=== PATIENT | female | born 2005 | race Asian ===

== ENCOUNTER 2024-06-18 11:04 | Outpatient (CLI) | payer OTHER, SELFPAY | END 2024-06-18 11:05 | disposition home or self-care (01) | LOC: NFLDREF 14:22 | PROVIDERS: Visit Provider Nurse Practitioner | DX: N30.01 Acute cystitis with hematuria (principal) | CPT/HCPCS: 87086; 87186 ==

== ENCOUNTER 2024-12-30 10:25 | Outpatient (CLI) | payer OTHER, SELFPAY | END 2024-12-30 10:26 | disposition home or self-care (01) | LOC: NFLDREF 01-01 07:16 | PROVIDERS: PCP Family Medicine; Referring Provider Family Medicine; Visit Provider Physician Assistant | DX: R30.0 Dysuria (principal); N39.0 Urinary tract infection, site not specified | CPT/HCPCS: 87086 ==